=== PATIENT | male | born 1970 | race Caucasian/White ===

== ENCOUNTER 2019-09-06 08:59 | Outpatient (CLI) | payer MEDICAID ==
[2019-09-06] MEDS ORDERED: BARIUM SULFATE/METHYLCELLULOSE 600 ML SUSPENSION BOTTLE**DONT ENTER PO ONE ×2 (14:00)
[2019-09-06] MEDS ORDERED: BARIUM SULFATE 340 ML SUSP.RECON***PROCEDURE AREA ONLY**DONT ENTER PO ONE ×2 (14:00)
[2019-09-06] MEDS ORDERED: SIMETHICONE/SOD BICARB/CIT AC PACKET PO ONE ×2 (14:00)
== END 2019-09-06 23:59 | disposition home or self-care (01) ==
LOC: RAD 08:59
PROVIDERS: ATTEND Family Medicine
DX: R10.13 Epigastric pain (principal)
CPT/HCPCS: 74245